=== PATIENT | male | born 1955 | race Caucasian/White ===

== ENCOUNTER 2021-02-13 11:16 | Emergency (ER) | payer MEDICAID ==
[~2021-02-13] VITALS: Ht 162.6 cm; Wt 75.3 kg
[2021-02-13 11:37] VITALS: BP 161/99
--- NOTE | 2021-02-13 11:43 | NUR ---
AT BEDSIDE FOR EVAL.
--- NOTE | 2021-02-13 11:55 | NUR ---
[facility] AT BEDSIDE FOR XRAY.
--- NOTE | 2021-02-13 14:02 | NUR ---
Patient discharged to home in stable condition. Written and verbal after care instructions given. Patient verbalizes understanding of instruction.
== END 2021-02-13 14:03 | disposition home or self-care (01) ==
LOC: ER 11:36
DX: U07.1 COVID-19 (principal); J98.8 Other specified respiratory disorders; I10 Essential (primary) hypertension; E11.9 Type 2 diabetes mellitus without complications; F17.210 Nicotine dependence, cigarettes, uncomplicated
CPT/HCPCS: 71045; 87426; 99284; C9803